=== PATIENT | female | born 1985 | race African-American/Black ===

== ENCOUNTER 2018-12-13 20:30 | Emergency (ER) | payer SELFPAY ==
[~2018-12-13] VITALS: Ht 167.6 cm; Wt 65.9 kg
[2018-12-14] MEDS ORDERED: XANA0.5T PO (00:25)
[2018-12-14 00:27] VITALS: BP 140/78
[2018-12-14] MEDS ORDERED: ALPRAZolam 0.5 MG TAB PO ONE (00:30)
== END 2018-12-14 00:29 | disposition home or self-care (01) ==
LOC: M ED 20:30
DX: F41.9 Anxiety disorder, unspecified (principal); Z87.59 Personal history of other complications of pregnancy, childbirth and the puerperium; Z88.0 Allergy status to penicillin; Z87.891 Personal history of nicotine dependence